=== PATIENT | female | born 1990 ===

== ENCOUNTER 2017-05-06 12:08 | Emergency (ER) | payer MEDICAID ==
[2017-05-06 12:19] VITALS: BP 106/64; PULSE 60; RESP 18; TEMP 98.5; O2SAT 100
--- NOTE | 2017-05-06 12:51 | ED PDOC ---
HPI: Abdomen Time Seen by Provider: 05/06/17 12:25 Chief Complaint (Nursing): Female Genitourinary History Per: Patient (Left lower/suprapubic pain x 2 days assoc with vaginal spotting. 1 episode vomiting, denies diarrhea. No dysuria or frequency.) Onset/Duration Of Symptoms: Days (2) Current Symptoms Are (Timing): Intermittent Episodes Severity: Mild Pain Scale Rating Of: 2 Location Of Pain/Discomfort: LLQ, Suprapubic Quality Of Discomfort: Sharp Associated Symptoms: Vomiting. denies: Fever, Diarrhea, Urinary Symptoms Exacerbating Factors: None Alleviating Factors: None Abnormal Vaginal Bleeding: Yes Past Medical History Vital Signs: Last Vital Signs Temp 98.5 F 05/06/17 12:25 Pulse 60 05/06/17 12:25 Resp 18 05/06/17 12:25 BP 106/64 05/06/17 12:25 Pulse Ox 100 05/06/17 12:52 - Medical History PMH: No Chronic Diseases - Surgical History Surgical History: (2) - Family History Family History: States: Unknown Family Hx - Home Medications Home Medications: Ambulatory Orders Medication Instructions Recorded Nitrofurantoin Macrocrystals 100 mg PO BID #14 cap 12/05/ [Macrobid] Famotidine [Pepcid] 20 mg PO BID #20 tab 07/01/16 Ondansetron [Zofran Odt] 4 mg PO Q8H PRN #15 odt 07/01/16 Naproxen [Naprosyn] 500 mg PO Q12H #20 tab 05/06/17 - Allergies Allergies/Adverse Reactions: Allergies Allergy/AdvReac Type Severity Reaction Status Date / Time shrimp Allergy ANGIOEDEMA Verified 05/06/17 12:25 Review of Systems Gastrointestinal: Positive for: Vomiting, Abdominal Pain. Negative for: Diarrhea Genitourinary Female: Positive for: Vaginal Bleeding. Negative for: Dysuria, Frequency Musculoskeletal: Negative for: Back Pain Physical Exam - Physical Exam Appears: Positive for: Non-toxic, No Acute Distress Skin: Positive for: Normal Color, Warm, DRY Gastrointestinal/Abdominal: Positive for: Bowel Sounds, Tenderness (Mild LLQ) Back: Negative for: L CVA Tenderness, R CVA Tenderness Extremity: Positive for: Normal ROM Neurologic/Psych: Positive for: Alert, Oriented - Laboratory Results Result Diagrams: 05/06/17 13:01 10/17/17 13:01 - ECG O2 Sat by Pulse Oximetry: 100 Disposition - Clinical Impression Clinical Impression: Dysmenorrhea - Patient ED Disposition Is Patient to be Admitted: No Counseled Patient/Family Regarding: Studies Performed, Diagnosis, Need For Followup, Rx Given - Disposition Disposition: Routine/Home Disposition Time: 15:43 Condition: FAIR Prescriptions: Naproxen [Naprosyn] 500 mg PO Q12H #20 tab Instructions: Dysmenorrhea (ED) Forms: [employer] (Armenian)
[2017-05-06 13:08] LABS: BASO % 0.5 % (0.0-2.0); EOS # 0.2 K/uL (0.0-0.7); EOS % 3.7 % (0.0-4.0); HEMATOCRIT 35.8 % (34.0-47.0); LYMPH # 1.6 K/uL (1.0-4.3); LYMPH % 26.6 % (20.0-40.0); MEAN CELL VOLUME 89.4 fl (81.0-99.0); MEAN CORPUSCULAR HEMOGLOBIN 29.3 pg (27.0-31.0); MEAN CORPUSCULAR HGB CONC 32.8 g/dL (33.0-37.0); MEAN PLATELET VOLUME 10.1 fl (7.2-11.7); MONO # 0.4 K/uL (0.0-0.8); MONO % 6.6 % (0.0-10.0); NEUT # 3.8 K/uL (1.8-7.0); NEUT % 62.6 % (50.0-75.0); NRBC % 0.1 % (0.0-0.0); RED CELL DISTRIBUTION WIDTH 13.7 % (11.5-14.5)
[2017-05-06 13:18] LABS: ALB/GLOB RATIO 1.3 (1.0-2.1); ALKALINE PHOSPHATASE 46 U/L (38-126); ALT/SGPT 30 U/L (9-52); AST/SGOT 25 U/L (14-36); BILIRUBIN,TOTAL 0.6 mg/dl (0.2-1.3); BLOOD UREA NITROGEN 10 mg/dl (7-17); CALCIUM 9.5 mg/dL (8.4-10.2); CARBON DIOXIDE 25 mmol/L (22-30); CHLORIDE 107 mmol/L (98-107); GFR AFRICAN-AMERICAN > 60; GLUCOSE,RANDOM 84 mg/dL (65-105); POTASSIUM 4.1 MMOL/L (3.6-5.0); SODIUM 139 mmol/l (132-148); TOTAL PROTEIN 7.3 G/DL (6.3-8.2)
--- NOTE | 2017-05-06 14:28 | US ---
HISTORY: Pelvic pain COMPARISON: None available. TECHNIQUE: Transvaginal pelvic ultrasound was performed. FINDINGS: UTERUS: Measures 9.3 x 4.3 x 6.1 cm. Anteverted, in size and appearance. No fibroid or other mass lesion seen. ENDOMETRIUM: Measures 10 mm in diameter. An intrauterine device is identified in the lower uterine segment. CERVIX: No cervical abnormality identified. RIGHT OVARY: Measures 3.8 x 2.6 x 3.2 cm. No solid mass. Normal flow. LEFT OVARY: Measures 3.4 x 1.9 x 2.3 cm. No solid mass. Normal flow. FREE FLUID: There is small amount of free fluid in the cul de sac. OTHER FINDINGS: None. IMPRESSION: Intrauterine device is identified in the lower uterine segment. Small amount of free fluid in the cul de sac may be physiologic.
== END 2017-05-06 16:12 | disposition home or self-care (01) ==
LOC: H.ER 12:08
DX: N94.6 Dysmenorrhea, unspecified (principal)

== ENCOUNTER 2018-10-27 14:01 | Emergency (ER) | payer MEDICAID ==
[2018-10-27 14:14] VITALS: RESP 18; O2SAT 100
--- NOTE | 2018-10-27 15:32 | ED PDOC ---
HPI: General Adult Time Seen by Provider: 10/27/18 14:28 Chief Complaint (Nursing): Female Genitourinary History Per: Patient Additional Complaint(s): Pt. states she is approximately 8 weeks and today she woke up with LLQ abdominal pain radiating to the pelvic area. Reports having 1 episodes of non- bloody, non-melanotic diarrhea. Pain has progressively worsened prompting ED visit. Further states she is scheduled to see her OBGYN for first time for this on . Denies vaginal bleeding, dysuria, hematuria, frequency, hx of ectopic , vomiting. ; LMP: 09/04/2018. Past Medical History Reviewed: Historical Data, Nursing Documentation, Vital Signs Vital Signs: Last Vital Signs Temp 98.5 F 10/27/18 14:11 Pulse 78 10/27/18 14:11 Resp 18 10/27/18 14:11 BP 149/81 10/27/18 14:11 Pulse Ox 100 10/27/18 14:11 - Medical History PMH: No Chronic Diseases - Surgical History Surgical History: (2) Denies: Appendectomy, Cholecystectomy, Hernia Repair - Family History Family History: States: No Known Family Hx - Home Medications Home Medications: Ambulatory Orders Medication Instructions Recorded Nitrofurantoin Macrocrystals 100 mg PO BID #14 cap 12/05/14 [Macrobid] Famotidine [Pepcid] 20 mg PO BID #20 tab 07/01/16 Ondansetron [Zofran Odt] 4 mg PO Q8H PRN #15 odt 07/01/16 Naproxen [Naprosyn] 500 mg PO Q12H #20 tab 05/06/17 - Allergies Allergies/Adverse Reactions: Allergies Allergy/AdvReac Type Severity Reaction Status Date / Time shrimp Allergy ANGIOEDEMA Verified 05/06/17 12:25 - Laboratory Results Result Diagrams: 10/27/18 15:41 10/27/18 15:41 - ECG O2 Sat by Pulse Oximetry: 100 - Progress ED Course And Treament: Labs, US ordered. OB US: 6 weeks 3 days live intrauterine gestation. Advised to f/u with OBGYN on as scheduled but is to return to ED if symptoms return or worsen. Re-evaluation Time: 17:20 Condition: Re-examined, Improved Disposition - Clinical Impression Clinical Impression: Pelvic pain during - Patient ED Disposition Is Patient to be Admitted: No - Disposition Disposition: Routine/Home Disposition Time: 17:20 Condition: IMPROVED Additional Instructions: FOLLOW UP WITH YOUR OBGYN ON FRIDAY FOR FURTHER EVALUATION RETURN TO ED IMMEDIATELY IF SYMPTOMS WORSEN HOLLI SANDERSON, thank you for letting us take care of you today. Your provider was Niels Aguilar MD and you were treated for 8 WEEKS PREG; ABD PAIN. The emergency medical care you received today was directed at your acute symptoms. If you were prescribed any medication, please fill it and take as directed. It may take several days for your symptoms to resolve. Return to the Emergency Department if your symptoms worsen, do not improve, or if you have any other problems. Please contact your doctor or call one of the physicians/clinics you have been referred to that are listed on the Patient Visit Information form that is included in your discharge packet. Bring any paperwork you were given at discharge with you along with any medications you are taking to your follow up visit. Our treatment cannot replace ongoing medical care by a primary care provider outside of the emergency department. Thank you for allowing the [facility] team to be part of your care today. If you had an X-Ray or CT scan: A Radiologist will review the ED reading if any change in treatment is needed we will contact you. If you had a blood, urine, or wound culture: It will take several days for the results, if any change in treatment is needed we will contact you. If you had an STI test: It will take 48 hours for the results. Please call after 1 week if you have not heard back. Instructions: Symptoms Forms: [employer] (Cypriot) Print Language: NEPALI
[2018-10-27 15:46] LABS: BASO % 0.4 % (0.0-2.0); EOS # 0.1 K/uL (0.0-0.7); EOS % 2.4 % (0.0-4.0); HEMOGLOBIN 12.2 g/dL (12.0-16.0); LYMPH # 0.9 K/uL (1.0-4.3); MEAN CELL VOLUME 89.6 fl (81.0-99.0); MEAN CORPUSCULAR HEMOGLOBIN 30.4 pg (27.0-31.0); MEAN CORPUSCULAR HGB CONC 33.9 g/dL (33.0-37.0); MEAN PLATELET VOLUME 9.5 fl (7.2-11.7); MONO # 0.3 K/uL (0.0-0.8); MONO % 6.2 % (0.0-10.0); NEUT # 3.3 K/uL (1.8-7.0); RBC 4.02 Mil/uL (3.80-5.20); RED CELL DISTRIBUTION WIDTH 13.9 % (11.5-14.5); WHITE BLOOD COUNT 4.6 K/uL (4.8-10.8)
[2018-10-27 15:58] LABS: SQUAMOUS EPITHIAL < 1 /hpf (0-5); URINE BILIRUBIN NEGATIVE (NEGATIVE); URINE BLOOD NEGATIVE (NEGATIVE); URINE CLARITY CLEAR (Clear); URINE COLOR STRAW (YELLOW); URINE GLUCOSE (UA) NEG (NEGATIVE); URINE LEUKOCYTE ESTERASE NEG Leu/uL (Negative); URINE PROTEIN NEGATIVE (NEGATIVE); URINE UROBILINOGEN 0.2-1.0 mg/dL (0.2-1.0)
[2018-10-27 16:08] LABS: ALB/GLOB RATIO 1.3 (1.0-2.1); ALBUMIN 4.4 g/dL (3.5-5.0); ALT/SGPT 57 U/L (9-52); AST/SGOT 38 U/L (14-36); BLOOD UREA NITROGEN 7 mg/dl (7-17); CALCIUM 9.8 mg/dL (8.4-10.2); GFR NON-AFRICAN AMERICAN > 60
--- NOTE | 2018-10-27 17:21 | US ---
Date of service: 10/27/2018 PROCEDURE: First trimester ultrasound HISTORY: LLQ pelvic pain COMPARISON: None TECHNIQUE: Standard protocol for this study/examination. FINDINGS: LMP: 09/04/2018. Prior examinations from the current : None TECHNIQUE: Real-time 2D imaging, duplex and color Doppler. FINDINGS: Cardiac activity: Present Rate: 162 BPM Measurements: [place] rump length: 0.92 cm Gestational age based on CRL 7 weeks Gestational age 5 weeks 6 days based on gestational sac measurement 1.61 cm Gestational age derived from LMP: 7 weeks 4 days KAN based on LMP: 06/11/2019 KAN based on biometry: 06/19/2019 Gestational concordance documented Yolk sac identified Cervix: No Cervical abnormalities: Negative examination for cervical dilatation or effacement. Closed cervix measuring 3.54 cm Subchorionic hemorrhage: None UTERUS: 5.2 x 5.7 x 9.8 cm. ADNEXA: Right: 2.1 x 2.6 x 3.6 cm. Complex presumed corpus luteum cyst 0.8 x 1.6 x 1.9 cm. Normal Doppler arterial waveform documented. Left: 1.2 x 1.9 x 2.3 cm. Normal Doppler arterial waveform documented Fluid in the cul-de-sac: None IMPRESSION: 6 weeks 3 days live intrauterine gestation. Gestational concordance documented.
[2018-10-27 18:15] VITALS: BP 148/79; PULSE 82; TEMP 98.3
== END 2018-10-27 18:10 | disposition home or self-care (01) ==
LOC: H.ER 14:01
DX: O99.89 Other specified diseases and conditions complicating pregnancy, childbirth and the puerperium (principal); O26.891 Other specified pregnancy related conditions, first trimester; R10.2 Pelvic and perineal pain; Z3A.08 8 weeks gestation of pregnancy